=== PATIENT | male | born 1975 | race Caucasian/White ===

== ENCOUNTER 2020-02-08 14:40 | Outpatient (CLI) | payer OTHER ==
[~2020-02-08] VITALS: Ht 190.5 cm; Wt 104.3 kg
[~2020-02-08 14:40] MED LIST: IBUPROFEN800 MG PO
[2020-02-08] MEDS ORDERED: HYZAAR 100-12.1 EACH (14:51)
[2020-02-08] MEDS ORDERED: ZYRTEC10 MG PO (14:51)
== END 2020-02-08 16:55 | disposition home or self-care (01) ==
LOC: OFIC 805 14:40
PROVIDERS: ATTEND Otolaryngology Otology & Neurotology
DX: H92.03 Otalgia, bilateral (principal); H60.393 Other infective otitis externa, bilateral; H61.23 Impacted cerumen, bilateral

== ENCOUNTER 2020-02-17 13:13 | Outpatient (CLI) | payer OTHER ==
[~2020-02-17 13:13] MED LIST changes: +HYZAAR 100-12.1 EACH; +ZYRTEC10 MG PO
== END 2020-02-17 14:30 | disposition home or self-care (01) ==
LOC: OFIC 805 13:13
PROVIDERS: ATTEND Otolaryngology Otology & Neurotology
DX: H60.8X3 Other otitis externa, bilateral (principal); H92.03 Otalgia, bilateral; H60.393 Other infective otitis externa, bilateral

== ENCOUNTER 2020-06-15 15:38 | Outpatient (CLI) | payer OTHER | END 2020-06-15 15:41 | disposition home or self-care (01) | LOC: LAB 15:38 | PROVIDERS: ATTEND Emergency Medicine Pediatric Emergency Medicine | DX: Z03.818 Encounter for observation for suspected exposure to other biological agents ruled out (principal) ==

== ENCOUNTER → 2020-09-26 12:11 | Outpatient (CLI) | payer OTHER | END | disposition home or self-care (01) | LOC: PPH VACUNA 12:11 | DX: Z23 Encounter for immunization (principal) ==